=== PATIENT | female | born 2000 | race Hispanic/Latino ===

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

== ENCOUNTER 2019-01-11 23:59 | Inpatient (IN) | payer OTHER ==
[2019-01-12] MEDS ORDERED: MIDAZOLAM HCL 2 MG/2 ML INJ IV PRN (00:09)
[2019-01-12] MEDS ORDERED: BUTORPHANOL 1 MG/ML INJ IV PRN (00:09)
[2019-01-12] MEDS ORDERED: Ringers Lactate 1,000 ML IV PRN (00:09)
[2019-01-12] MEDS ORDERED: MEPERIDINE HCL 25 MG/0.5 ML IV PRN (00:09)
[2019-01-12] MEDS ORDERED: PROMETHAZINE 25 MG/ML VIAL IV PRN (00:09)
[2019-01-12] MEDS ORDERED: PENICILLIN 5 MU in NA CHLORIDE 0.9% 100 ML IV ONE (00:09)
[2019-01-12] MEDS ORDERED: CARBOPROST TROME 250 MCG/ML IM PRN ×2 (00:09→12:39)
[2019-01-12] MEDS ORDERED: METHYLERGONOVINE 0.2MG/ML AMP IM PRN ×2 (00:09→12:39)
[2019-01-12] MEDS ORDERED: Ringers Lactate 1,000 ML IV SCH (01:00)
[2019-01-12] MEDS ORDERED: OXYTOCIN/LR 20 UNIT/1,000 ML BAG IV SCH (01:00)
[2019-01-12 01:11] LABS: RPR Titer ND
[2019-01-12 01:17] LABS: Absolute Lymphocytes (CBC) 3.2 K/uL (0.7-4.9); Absolute Neutrophil 8.9 K/uL (1.8-8.0); Basophils % 0.4 % (0-1.3); Eosinophils % 1.1 % (0-4.4); Hematocrit 34.7 % (36.0-45.0); Lymphocytes % 24.1 % (15.3-44.8); MPV 9.9 fL (7.6-11.3); Monocytes % 7.3 % (3.3-12.3); RBC Red Blood Cell Count 3.85 M/uL (3.86-4.86)
[2019-01-12 01:18] LABS: Urine Appearance CLEAR; Urine Bilirubin NEGATIVE (NEG); Urine Blood NEGATIVE (NEG); Urine Color YELLOW; Urine Glucose NEGATIVE (NEG); Urine Protein NEGATIVE (NEG); Urine Urobilinogen 0.2 mg/dL (0.2-1.0); Urine pH 6.5 (5.0-7.0)
[2019-01-12 01:29] LABS: Urine Bacteria <20 /HPF (<20); Urine Culture Reflex Order NOT NEEDED; Urine RBC NONE SEEN /HPF (NONE SEEN)
[2019-01-12 04:24] VITALS: BMI 46.0
[2019-01-12] MEDS ORDERED: NA CHLORIDE 0.9% 100 ML IV ONE (04:35)
[2019-01-12] MEDS ORDERED: PENICILLIN G POT 5 MU/VIAL IV ONE (04:36)
[2019-01-12] MEDS ORDERED: PENICILLIN 2.5 MU in NA CHLORIDE 0.9% 100 ML IV SCH (05:00)
[2019-01-12] MEDS ORDERED: LIDOCAINE 2% 20 ML MDV SQ ONE (08:40)
[2019-01-12] MEDS ORDERED: INFLUENZA VACCINE (for 3y+) 0.5 ML DOSE IMVAC ONE (09:00)
--- NOTE | 2019-01-12 11:54 | PREOPHP ---
Date of Admission: 01/11/2019 A 18-year-old 3, para 2, followed antepartum, Rh positive, immune to Rubella, positive beta s trep screen, is on penicillin, has received 2 doses so far. Gestational diabetic, on insulin, has be en seen in association with [facility], Dr. Xiong, who has recommended delivery at this time. The patient is 3 cm, 50% effaced, but the baby is still fairly high in the pelvis, altho ugh it is well applied to the cervix. I think, it is more prudent at this point not to try rupture o f membranes. We will continue to stimulate with oxytocin and once either spontaneous rupture occurs, the patient will notify the nurse so she can be checked quickly to make sure there is no cord proble m. Full admission and labor talk given. We have a female fetus. The patient knows that after deliv camelia if the baby has any problems, dominatrix will arrange transfer if it becomes necessary. The kenneth watters has had both her other babies without the use of epidural and plans the same at this point. Demetrio th her other deliveries have also been slightly early, the first one at 37 weeks, the second one at 3 8 weeks and 4 days. This is 37 weeks and 3 days. HATTIE/LASHONDA Voice ID: [id number]
--- NOTE | 2019-01-12 15:34 | PN ---
The patient is aashish now very firmly every 2 minute. She is now 6 cm, 90% to 100% effaced, deirdre mona, -1, almost 0 station. FHTs normal, reactive. She has had 1 dose of Stadol IV. Phenergan IM. Does not want epidural. Anticipate fairly rapid progress. HATTIE/LASHONDA Voice ID: [id number] Report ID: [id number]
[2019-01-12] MEDS ORDERED: Oxycodone HCl/Acetaminophen 1 TAB TAB PO PRN ×2 (15:49→15:51)
[2019-01-12] MEDS ORDERED: ACETAMINOPHEN 500 MG TAB PO PRN (15:49)
[2019-01-12] MEDS ORDERED: DOCUSATE NA/SENNA CONC 1 TAB PO PRN (15:49)
[2019-01-12] MEDS ORDERED: BISACODYL 10 MG RECTAL SUPP RECT PRN (15:49)
[2019-01-12] MEDS ORDERED: glyBURIDE 2.5 MG TAB ONE (20:05)
[2019-01-12 20:49] LABS: RPR (Rapid Plasma Reagin) NON-REACT (NON-REACT)
[2019-01-12] MEDS: IBUPROFEN 200 MG TAB PO PRN (22:45)
--- NOTE | 2019-01-13 00:28 | OP ---
Surgeon: Danny Walters MD History Of Present Illness/hospital Course: A 18-year-old, 3, para 2, gestational insulin-de pendent diabetic. Seen in consultation with [facility], Dr. Xiong, who has sugges afia delivery at this point. The patient was 37 weeks 3 days with a favorable cervix, 2.5 cm, vertex presenting. At approximately 3.5 cm, rupture of membranes was performed, clear fluid. The patient w ent to a very active labor pattern thereafter, received 1 mg of Stadol IV. After she achieved 5 cm w ithin the next 30 minutes, was complete and on the perineum. Second stage of 10 minutes or less. Sp ontaneous vaginal delivery of an estimated 6-suqzc-mzro female. Nuchal cord x2 with Apgars 9 and 9. No episiotomy. No laceration. Sharma delivery of the placenta, which was inspected and noted to b e intact and normal. Less than 300 cc blood loss. Rh positive, immune to Rubella. Positive strep s creen. The patient received at least 3, possibly 4 doses of penicillin during her labor. Tolerated all procedures well. Final Diagnoses: Intrauterine gestation, 37 weeks 3 days, insulin-dependent diabetic, seen in consul tation with [facility], Dr. Xiong. Delivery at this point. Nuchal cord x2. Peni cillin prophylaxis. DANIELLEC/ISISL Voice ID: [id number] Report ID: [id number]
--- NOTE | 2019-01-13 08:20 | PN ---
Subjective: The patient still has not brought the baby down after rupture of membranes. She is on 2 2 milliunits of Pitocin. She is really still not aware of contractions, although she seems to be con tracting regularly. She knows a spontaneous rupture occurs, she is to tell the nurse immediately. W sharlene will check her again in about 2 hours and I will check her again at lunchtime. HATTIE/LASHONDA Voice ID: [id number] Report ID: [id number]
[2019-01-13] MEDS: IBUPROFEN 200 MG TAB PO PRN (10:35)
[2019-01-13 11:29] VITALS: BP 119/69; TEMP 97.8
--- NOTE | 2019-01-13 18:20 | DS ---
Date of Discharge: 01/13/2019 Hospital Course: This is a 18-year-old, 3, para 2, 37 weeks 3 days, seen in consultation wit [facility] Dr. Xiong, who recommended delivery at this point. 2.5 cm on admissi on. During the day, the patient progressed to 3.5, at which point, rupture of membranes was performe d. Clear fluid was obtained. She went to a very active labor pattern thereafter. She had 1 mg of S tadol IV and 25 mg of Phenergan IM. Second stage of 15 minutes or less. Spontaneous vaginal deliver y of a 6-pound 8-ounce female. Apgars 9 and 9. Nuchal cord x2. No episiotomy. No laceration. Mukesh ultze delivery of the placenta, which was inspected and noted to be intact and normal. Less than 300 cc blood loss. Penicillin prophylaxis during the labor as she had a strep positive status. Postpar sabrina, afebrile, ambulating and voiding. Lochia is normal. She will be dismissed later today to repor t back to my office next week. She is to take her blood sugars as she has been during the . If she has any very unusual sugars, she is to call my office and we will see her sooner than 6 week s. I think the patient will probably be diabetic even when she is not and we will get her a specialist for that. Final Diagnoses: Intrauterine gestation, 37 weeks 3 days, insulin dependent diabetes. Penicillin pr ophylaxis. Nuchal cord x2. Vaginal delivery. HATTIE/LASHONDA Voice ID: [id number] Report ID: [id number]
[2019-01-13] MEDS ORDERED: glyBURIDE 2.5 MG TAB PO ONE (19:32)
[2019-01-17 05:07] LABS: HBsAG Nonreactive (Nonreactive)
== END 2019-01-13 15:30 | disposition home or self-care (01) | DRG 807 ==
LOC: 2ND-WC 23:59
PROVIDERS: ADMIT Specialist; ATTEND Specialist
PROC: 10E0XZZ Delivery of Products of Conception, External Approach (ICD-10-PCS; principal; 2019-01-12)
PROC: 10907ZC Drainage of Amniotic Fluid, Therapeutic from Products of Conception, Via Natural or Artificial Opening (ICD-10-PCS; 2019-01-12)
DX: O60.14X0 Preterm labor third trimester with preterm delivery third trimester, not applicable or unspecified (principal); Z37.0 Single live birth; O99.824 Streptococcus B carrier state complicating childbirth; O24.424 Gestational diabetes mellitus in childbirth, insulin controlled; O69.81X0 Labor and delivery complicated by cord around neck, without compression, not applicable or unspecified; Z3A.37 37 weeks gestation of pregnancy
CPT/HCPCS: 36415; 76819; 81001; 82962; 85025; 86592; 86901; 87340; J0595; J2210; J2550; J2590

== ENCOUNTER 2019-01-21 07:03 | Emergency (ER) | payer OTHER ==
--- NOTE | 2019-01-21 08:08 | EDPHYS ---
Physician Documentation [facility] Name: Maci Arellano Age: 18 yrs Sex: Female : 2000 Arrival Date: 01/21/2019 Time: 07:14 Bed 20 Private MD: ED Physician Randell Bermeo HPI: 01/21 08:21 This 18 yrs old Female presents to ER via Ambulatory with complaints of Eye jr8 Swelling. 08:21 Onset: The symptoms/episode began/occurred acutely, this morning. Duration: the jr8 symptoms are continuous. Aggravated by nothing. Alleviated by nothing. Associated signs and symptoms: Pertinent positives: None. Patient wears glasses. Severity of symptoms: At their worst the symptoms were mild in the emergency department the symptoms are unchanged. The patient has not experienced similar symptoms in the past. The patient has not recently seen a physician. Stated that she woke up this morning with left upper eyelid swelling . Historical: - Allergies: 07:19 No Known Allergies; hb - Home Meds: 07:19 Glyburide Oral [Active]; hb - PMHx: 07:19 GESTATIONAL DM; hb - PSHx: 07:19 None; hb - Immunization history:: Adult Immunizations up to date. - Social history:: Smoking status: Patient/guardian denies using tobacco. - Ebola Screening: : No symptoms or risks identified at this time. ROS: 08:21 ENT: Negative for injury, pain, and discharge, Neck: Negative for injury, pain, and jr8 swelling, Cardiovascular: Negative for chest pain, palpitations, and edema, Respiratory: Negative for shortness of breath, cough, wheezing, and pleuritic chest pain, Abdomen/GI: Negative for abdominal pain, nausea, vomiting, diarrhea, and constipation, Back: Negative for injury and pain, MS/Extremity: Negative for injury and deformity, Skin: Negative for injury, rash, and discoloration, Neuro: Negative for headache, weakness, numbness, tingling, and seizure. 08:21 Eyes: Positive for swelling, of the left upper eyelid, Negative for blurry vision, discharge, foreign body sensation, injury or acute deformity, itching, matting, pain, photophobia, redness, tearing, vision loss, visual disturbance. Exam: 08:21 Visual Acuity: Visual acuity is within normal limits. jr8 08:21 Head/Face: Normocephalic, atraumatic. ENT: Nares patent. No nasal discharge, no septal abnormalities noted. Tympanic membranes are normal and external auditory canals are clear. Oropharynx with no redness, swelling, or masses, exudates, or evidence of obstruction, uvula midline. Mucous membranes moist. Neck: Trachea midline, no thyromegaly or masses palpated, and no cervical lymphadenopathy. Supple, full range of motion without nuchal rigidity, or vertebral point tenderness. No Meningismus. Cardiovascular: Regular rate and rhythm with a normal S1 and S2. No gallops, murmurs, or rubs. Normal PMI, no JVD. No pulse deficits. Respiratory: Lungs have equal breath sounds bilaterally, clear to auscultation and percussion. No rales, rhonchi or wheezes noted. No increased work of breathing, no retractions or nasal flaring. Abdomen/GI: Soft, non-tender, with normal bowel sounds. No distension or tympany. No guarding or rebound. No evidence of tenderness throughout. Back: No spinal tenderness. No costovertebral tenderness. Full range of motion. Skin: Warm, dry with normal turgor. Normal color with no rashes, no lesions, and no evidence of cellulitis. MS/ Extremity: Pulses equal, no cyanosis. Neurovascular intact. Full, normal range of motion. Neuro: Awake and alert, GCS 15, oriented to person, place, time, and situation. Cranial nerves II-XII grossly intact. Motor strength 5/5 in all extremities. Sensory grossly intact. Cerebellar exam normal. Normal gait. 08:21 Eyes: Periorbital structures: cellulitis, is not appreciated, erythema, is not appreciated, swelling, that is mild, on the left upper eyelid, abrasion, is not appreciated, contusion, is not appreciated, ecchymosis, is not appreciated, Pupils: equal, round, and reactive to light and accomodation, Extraocular movements: intact throughout, Conjunctiva: normal, Corneas: are normal, no foreign body, Sclera: no appreciated abnormality, Anterior chamber: normal, no hyphema, Lids and lashes: appear normal, bilaterally, Examination of the other eye reveals no obvious gross abnormality. Vital Signs: 07:16 BP 128 / 79; Resp 18; Temp 98.7; ph MDM: 07:34 Patient medically screened. jr8 08:06 Data reviewed: vital signs, nurses notes, and as a result, I will discharge patient. jr8 Data interpreted: Pulse oximetry: on room air is 100 %. Interpretation: normal. Counseling: I had a detailed discussion with the patient and/or guardian regarding: the historical points, exam findings, and any diagnostic results supporting the discharge/admit diagnosis, the need for outpatient follow up, an opthalmologist, to return to the emergency department if symptoms worsen or persist or if there are any questions or concerns that arise at home. 08:21 ED course: Discussed with patient that there is only mild amount of swelling noted jr8 without infective or traumatic signs. At this point there is noting clinically we can do to help. Would recommend close observation for now and to f/u with optometry. If something were to change or worsen to come back. Patient good with this plan . Administered Medications: No medications were administered Disposition: 01/21/19 08:08 Discharged to Home. Impression: Periorbital edema. - Condition is Stable. - Discharge Instructions: Orbital Cellulitis. - Medication Reconciliation Form, Thank You Letter, Antibiotic Education, Prescription Opioid Use form. - Follow up: Private Physician; When: 1 - 2 days; Reason: Recheck today's complaints, Continuance of care, Re-evaluation by your physician. - Problem is new. - Symptoms have improved. Addendum: 01/24/2019 19:31 Co-signature as Attending Physician, Randell Bermeo MD. g s Signatures: Trip Mcgrath PA PA jr8 Jennifer Sorenson RN RN Joceline Tracey RN RN Randell Bermeo MD MD Corrections: (The following items were deleted from the chart) 01/21 08:19 08:08 01/21/2019 08:08 Discharged to Home. Impression: Periorbital edema. Condition is ph Stable. Forms are Medication Reconciliation Form, Thank You Letter, Antibiotic Education, Prescription Opioid Use. Follow up: Private Physician; When: 1 - 2 days; Reason: Recheck today's complaints, Continuance of care, Re-evaluation by your physician. Problem is new. Symptoms have improved. jr8
--- NOTE | 2019-01-21 08:08 | ER ---
Nurse's Notes [facility] Name: Maci Arellano Age: 18 yrs Sex: Female : 2000 Arrival Date: 01/21/2019 Time: 07:14 Bed 20 Private MD: Diagnosis: Periorbital edema Presentation: 01/21 07:17 Presenting complaint: Patient states: Left periorbital swelling upon waking today. hb Denies injury/pain/itching. Transition of care: patient was not received from another setting of care. Onset of symptoms was January 21, 2019. Risk Assessment: Do you want to hurt yourself or someone else? Patient reports no desire to harm self or others. Initial Sepsis Screen: Does the patient meet any 2 criteria? No. Patient's initial sepsis screen is negative. Does the patient have a suspected source of infection? No. Patient's initial sepsis screen is negative. Care prior to arrival: None. 07:17 Method Of Arrival: Ambulatory hb 07:17 Acuity: IRVIN 4 hb Historical: - Allergies: 07:19 No Known Allergies; hb - Home Meds: 07:19 Glyburide Oral [Active]; hb - PMHx: 07:19 GESTATIONAL DM; hb - PSHx: 07:19 None; hb - Immunization history:: Adult Immunizations up to date. - Social history:: Smoking status: Patient/guardian denies using tobacco. - Ebola Screening: : No symptoms or risks identified at this time. Screenin:18 Abuse screen: Denies threats or abuse. Denies injuries from another. Nutritional ph screening: No deficits noted. Tuberculosis screening: No symptoms or risk factors identified. Fall Risk None identified. Assessment: 07:30 General: Appears in no apparent distress. comfortable, well groomed, Behavior is calm, ph cooperative, appropriate for age, Denies fever, feeling ill. Pain: Denies pain. Neuro: Level of Consciousness is awake, alert, obeys commands, Oriented to person, place, time, situation. Cardiovascular: Capillary refill < 3 seconds in bilateral fingers Patient's skin is warm and dry. Respiratory: Airway is patent Respiratory effort is even, unlabored, Respiratory pattern is regular, symmetrical. GI: No signs and/or symptoms were reported involving the gastrointestinal system. EENT: Lid(s) swelling noted to L upper lid. Derm: Skin is intact, is healthy with good turgor, Skin is pink, warm \T\ dry. Musculoskeletal: Circulation, motion, and sensation intact. Range of motion: intact in all extremities. Vital Signs: 07:16 BP 128 / 79; Resp 18; Temp 98.7; ph ED Course: 07:14 Patient arrived in ED. tw3 07:15 Jennifer Sorenson, RN is Primary Nurse. ph 07:18 Triage completed. hb 07:18 Arm band placed on Patient placed in an exam room. ph 07:34 Trip Mcgrath PA is PHCP. jr8 07:34 Randell Bermeo MD is Attending Physician. jr8 08:18 Patient has correct armband on for positive identification. Placed in gown. Bed in low ph position. Call light in reach. Side rails up X 1. Pulse ox on. NIBP on. Warm blanket given. 08:18 No provider procedures requiring assistance completed. Patient did not have IV access ph during this emergency room visit. Administered Medications: No medications were administered Outcome: 08:08 Discharge ordered by . jr8 08:19 Discharged to home ambulatory. ph 08:19 Condition: good 08:19 Discharge instructions given to patient, Instructed on discharge instructions, follow up and referral plans. Demonstrated understanding of instructions, follow-up care. 08:19 Patient left the ED. ph Signatures: Trip Mcgrath PA PA [facility] Jennifer Sorenson, SILVA ASCENCIO Joceline Tracey RN RN hb Wade, Tia tw3
[2019-01-21 08:29] VITALS: BP 128/79; TEMP 98.7
== END 2019-01-21 08:19 | disposition home or self-care (01) ==
LOC: ER 07:03
DX: H05.222 Edema of left orbit (principal)
CPT/HCPCS: 99282

== ENCOUNTER 2020-06-02 17:11 | Emergency (ER) | payer OTHER, SELFPAY ==
[2020-06-02] MEDS ORDERED: MAGNE/ALUM HYDROXD 30 ML UCUP ONE (20:19)
--- NOTE | 2020-06-02 20:23 | EDPHYS ---
Physician Documentation [facility] Name: Maci Arellano Age: 19 yrs Sex: Female : 2000 Arrival Date: 06/02/2020 Time: 17:12 Bed 28 Private MD: ED Physician Blaise Hart HPI: 06/02 20:00 This 19 yrs old Female presents to ER via Ambulatory with complaints of snw Abdominal Pain. 20:00 The patient presents with abdominal pain in the epigastric area. Onset: The snw symptoms/episode began/occurred suddenly, last night. The symptoms radiate to back. Associated signs and symptoms: Pertinent positives: sore throat. The symptoms are described as burning, sharp. Severity of pain: At its worst the pain was moderate. The patient has not experienced similar symptoms in the past. The patient has not recently seen a physician. 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 - Social history:: Smoking status: Patient denies any tobacco usage or history of. ROS: 19:58 Eyes: Negative for injury, pain, redness, and discharge, ENT: Negative for injury, snw pain, and discharge, Neck: Negative for injury, pain, and swelling, Cardiovascular: Negative for chest pain, palpitations, and edema, Respiratory: Negative for shortness of breath, cough, wheezing, and pleuritic chest pain. 19:58 ENT: Negative for injury and discharge, sore throat to left when swallowing : Negative for injury, bleeding, discharge, and swelling, MS/Extremity: Negative for injury and deformity, Skin: Negative for injury, rash, and discoloration, Neuro: Negative for headache, weakness, numbness, tingling, and seizure. 19:58 Constitutional: Positive for malaise. 19:58 Abdomen/GI: Positive for abdominal pain, of the epigastric area. 19:58 Back: Positive for pain with movement. Exam: 19:58 Constitutional: This is a well developed, well nourished patient who is awake, alert, snw and in no acute distress. Head/Face: Normocephalic, atraumatic. Eyes: Pupils equal round and reactive to light, extra-ocular motions intact. Lids and lashes normal. Conjunctiva and sclera are non-icteric and not injected. Cornea within normal limits. Periorbital areas with no swelling, redness, or edema. ENT: Nares patent. No nasal discharge, no septal abnormalities noted. Tympanic membranes are normal and external auditory canals are clear. Oropharynx with no redness, swelling, or masses, exudates, or evidence of obstruction, uvula midline. Mucous membranes moist. Neck: Trachea midline, no thyromegaly or masses palpated, and no cervical lymphadenopathy. Supple, full range of motion without nuchal rigidity, or vertebral point tenderness. No Meningismus. Chest/axilla: Normal chest wall appearance and motion. Nontender with no deformity. No lesions are appreciated. Cardiovascular: Regular rate and rhythm with a normal S1 and S2. No gallops, murmurs, or rubs. Normal PMI, no JVD. No pulse deficits. Respiratory: Lungs have equal breath sounds bilaterally, clear to auscultation and percussion. No rales, rhonchi or wheezes noted. No increased work of breathing, no retractions or nasal flaring. Abdomen/GI: Soft, non-tender, with normal bowel sounds. No distension or tympany. No guarding or rebound. No evidence of tenderness throughout. Back: No spinal tenderness. No costovertebral tenderness. Full range of motion. Skin: Warm, dry with normal turgor. Normal color with no rashes, no lesions, and no evidence of cellulitis. MS/ Extremity: Pulses equal, no cyanosis. Neurovascular intact. Full, normal range of motion. Neuro: Awake and alert, GCS 15, oriented to person, place, time, and situation. Cranial nerves II-XII grossly intact. Motor strength 5/5 in all extremities. Sensory grossly intact. Cerebellar exam normal. Normal gait. Psych: Awake, alert, with orientation to person, place and time. Behavior, mood, and affect are within normal limits. Vital Signs: 17:21 BP 113 / 81; Pulse 91; Resp 15; Temp 97.0(TE); Pulse Ox 100% on R/A; Weight 96.16 kg; ss Height 4 ft. 11 in. (149.86 cm); Pain 6/10; 20:59 BP 110 / 62; Pulse 78; Resp 16; Temp 97.2(O); Pulse Ox 99% on R/A; Pain 3/10; ls4 17:21 Body Mass Index 42.82 (96.16 kg, 149.86 cm) ss MDM: 19:24 Patient medically screened. snw 20:28 Data reviewed: vital signs, nurses notes. Data interpreted: Pulse oximetry: on room air snw is 100 %. Interpretation: normal. Counseling: I had a detailed discussion with the patient and/or guardian regarding: the historical points, exam findings, and any diagnostic results supporting the discharge/admit diagnosis, lab results, the need for outpatient follow up, to return to the emergency department if symptoms worsen or persist or if there are any questions or concerns that arise at home. Special discussion: Based on the history and exam findings, there is no indication for further emergent testing or inpatient evaluation. I discussed with the patient/guardian the need to see the primary care provider for further evaluation of the symptoms. 06/02 18:01 Order name: Urine Microscopic Only snw 06/02 18:02 Order name: Urine Microscopic Only EDMS 06/02 20:06 Order name: Urine Dipstick-Ancillary; Complete Time: 20:52 EDMS 06/02 20:19 Order name: Glucose, Ancillary Testing; Complete Time: 20:20 EDMS 06/02 18:01 Order name: Urine Test (obtain specimen); Complete Time: 19:55 snw 06/02 18:01 Order name: Urine Dipstick-Ancillary (obtain specimen); Complete Time: 19:55 snw 06/02 19:55 Order name: FSBS; Complete Time: 20:20 snw Administered Medications: 20:04 Drug: GI Cocktail without - (Maalox Suspension 30 ml, Lidocaine Liquid 2 % 15 ls4 ml) Route: PO; 20:28 Drug: metFORMIN 500 mg Route: PO; ls4 20:58 Follow up: Response: No adverse reaction ls4 Disposition: 06/03 07:23 Co-signature as Attending Physician, Blaise Hart MD I agree with the assessment and kdr plan of care. Disposition: 06/02/20 20:22 Discharged to Home. Impression: Diabetes mellitus due to underlying condition with hyperglycemia, Gastro-esophageal reflux disease. - Condition is Stable. - Discharge Instructions: Diabetes and Sick Day Management, Gastroesophageal Reflux Disease, Adult, Complementary and Alternative Medical Therapies for Diabetes, Form - Daily Diabetes Record, Blood Glucose Monitoring, Adult, Rehydration, Adult, Diet for Metabolic Syndrome. - Prescriptions for Metformin 500 mg Oral Tablet - take 1 tablet by ORAL route once daily for 7 days Then take 1 tablet with morning meals AND evening meals; 21 tablet. - Medication Reconciliation Form, Thank You Letter, Antibiotic Education, Prescription Opioid Use form. - Follow up: Emergency Department; When: As needed; Reason: Worsening of condition. Follow up: Private Physician; When: 2 - 3 days; Reason: Recheck today's complaints, Continuance of care, Re-evaluation by your physician. - Notes: Metformin commonly causes diarrhea in the beginning of treatment. Signatures: Dispatcher [employer] EDDE Blaise Hart MD MD kdr Waters, Shelly, B2B SALES CONSULTANT-C [employer] SALES CONSULTANT-Csnw Crista Sanchez RN RN ss Katarina Valiente RN RN ls4 Corrections: (The following items were deleted from the chart) 06/02 20:59 20:07 URINE DIPSTICK--ANCILLARY+U.LAB.BRZ ordered. [facility] 21:01 20:22 06/02/2020 20:22 Discharged to Home. Impression: Diabetes mellitus due to ls4 underlying condition with hyperglycemia; Gastro-esophageal reflux disease. Condition is Stable. Forms are Medication Reconciliation Form, Thank You Letter, Antibiotic Education, Prescription Opioid Use. Follow up: Emergency Department; When: As needed; Reason: Worsening of condition. Follow up: Private Physician; When: 2 - 3 days; Reason: Recheck today's complaints, Continuance of care, Re-evaluation by your physician. snw
--- NOTE | 2020-06-02 20:23 | ER ---
Nurse's Notes [facility] Name: Maci Arellano Age: 19 yrs Sex: Female : 2000 Arrival Date: 06/02/2020 Time: 17:12 Bed 28 Private MD: Diagnosis: Diabetes mellitus due to underlying condition with hyperglycemia;Gastro-esophageal reflux disease Presentation: 06/02 17:20 Chief complaint: Patient states: epigastric pain that began last night. Pt states, "Any ss time I eat or drink anything it hurts going down.". Coronavirus screen: Patient denies a cough. Patient denies shortness of breath or difficulty breathing. Patient denies measured and/or subjective temperature greater than 100.4F prior to today's visit. Patient denies travel on a cruise ship or to a country the [facility] currently lists as an affected area. Patient denies contact with known and/or suspected case of COVID-19. Ebola Screen: Patient denies exposure to infectious person. Patient denies travel to an Ebola-affected area in the 21 days before illness onset. Initial Sepsis Screen: Does the patient meet any 2 criteria? No. Patient's initial sepsis screen is negative. Does the patient have a suspected source of infection? No. Patient's initial sepsis screen is negative. Risk Assessment: Do you want to hurt yourself or someone else? Patient reports no desire to harm self or others. Onset of symptoms was June 01, 2020. 17:20 Method Of Arrival: Ambulatory ss 17:20 Acuity: IRVIN 3 ss Triage Assessment: 19:01 General: Appears in no apparent distress. comfortable, Behavior is calm, cooperative. 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 - Social history:: Smoking status: Patient denies any tobacco usage or history of. Screenin:22 Abuse screen: Denies threats or abuse. Denies injuries from another. Nutritional ls4 screening: No deficits noted. Tuberculosis screening: No symptoms or risk factors identified. Fall Risk None identified. Assessment: 18:50 General: Appears in no apparent distress. comfortable. Pain: Complains of pain in ls4 epigastric area Pain currently is 6 out of 10 on a pain scale. Cardiovascular: Denies chest pain, Capillary refill < 3 seconds Patient's skin is warm and dry. Respiratory: Airway is patent Respiratory effort is even, unlabored, Respiratory pattern is regular, Breath sounds are clear bilaterally. GI: Bowel sounds present X 4 quads. Abd is soft and non tender X 4 quads. Reports epigastric pain, intolerance of fluids, intolerance of food. Derm: Skin is pink, warm \\T\\ dry. 20:22 Reassessment: Patient appears in no apparent distress at this time. Patient and/or ls4 family updated on plan of care and expected duration. Pain level reassessed. Patient is alert, oriented x 3, equal unlabored respirations, skin warm/dry/pink. Vital Signs: 17:21 BP 113 / 81; Pulse 91; Resp 15; Temp 97.0(TE); Pulse Ox 100% on R/A; Weight 96.16 kg; ss Height 4 ft. 11 in. (149.86 cm); Pain 6/10; 20:59 BP 110 / 62; Pulse 78; Resp 16; Temp 97.2(O); Pulse Ox 99% on R/A; Pain 3/10; ls4 17:21 Body Mass Index 42.82 (96.16 kg, 149.86 cm) ED Course: 17:12 Patient arrived in ED. ag5 17:21 Triage completed. ss 17:21 Arm band placed on right wrist. ss 18:01 [facility]C [facility]. snw 18:01 Blaise Hart MD is Attending Physician. snw 19:57 Katarina Valiente, SILVA is Primary Nurse. ls4 20:22 Patient has correct armband on for positive identification. Call light in reach. Side ls4 rails up X 1. 20:54 Urine Microscopic Only Sent. ls4 20:58 Urine Microscopic Only Sent. ls4 21:01 No provider procedures requiring assistance completed. Patient did not have IV access ls4 during this emergency room visit. Administered Medications: 20:04 Drug: GI Cocktail without - (Maalox Suspension 30 ml, Lidocaine Liquid 2 % 15 ls4 ml) Route: PO; 20:28 Drug: metFORMIN 500 mg Route: PO; ls4 20:58 Follow up: Response: No adverse reaction ls4 Outcome: 20:22 Discharge ordered by MD. cantu 21:00 Discharged to home ambulatory. ls4 21:00 Condition: good 21:00 Discharge instructions given to patient, Instructed on discharge instructions, follow up and referral plans. medication usage, safety practices, Diabetes education given Demonstrated understanding of instructions, follow-up care, medications, Prescriptions given X 1. 21:01 Patient left the ED. ls4 Signatures: Elvia Lopez, OUTPATIENT CASE MANAGER-C OUTPATIENT CASE MANAGER-[place] Crista Sanchez, RN RN ss Katarina Valiente RN RN ls4 Mikey Schneider ag5 Corrections: (The following items were deleted from the chart) 20:59 20:20 URINE DIPSTICK--ANCILLARY+U.LAB.BRZ drawn and sent. ls4 EDMS
[2020-06-02] MEDS ORDERED: METFORMIN HCL 500 MG TAB ONE (20:39)
[2020-06-02 20:49] LABS: Urine Blood NEGATIVE (NEG); Urine Glucose 2+ (NEG); Urine Protein TRACE (NEG); Urine Specific Gravity >1.030 (1.005-1.030); Urine pH 5.5 (5.0-7.0)
[2020-06-02 21:34] LABS: Urine Bacteria 20-50 /HPF (<20); Urine Culture Reflex Order REFLEXED; Urine RBC <5 /HPF (NONE SEEN)
== END 2020-06-02 21:01 | disposition home or self-care (01) ==
LOC: ER 17:11
DX: K21.9 Gastro-esophageal reflux disease without esophagitis (principal); E11.65 Type 2 diabetes mellitus with hyperglycemia
CPT/HCPCS: 81003; 81015; 82947; 87086; 87088; 99283

== ENCOUNTER 2022-11-11 06:34 | Emergency (ER) | payer OTHER ==
[2022-11-11 07:39] LABS: Urine Blood Trace-lysed (Negative); Urine Glucose Negative (Negative); Urine Protein Negative (Negative); Urine Specific Gravity 1.015 (1.005-1.030)
[2022-11-11 08:20] LABS: Absolute Lymphocytes (CBC) 2.5 K/uL (0.7-4.9); Hematocrit 36.7 % (36.0-45.0); Lymphocytes % 21.6 % (15.3-44.8); MCV 89.3 fL (80-100); MPV 8.5 fL (7.6-11.3); RBC Red Blood Cell Count 4.11 M/uL (3.86-4.86)
[2022-11-11 08:32] LABS: Albumin 3.3 g/dL (3.4-5.0); Bilirubin Total 0.2 mg/dL (0.2-1.0); Potassium 3.8 mmol/L (3.5-5.1); Protein, Total 7.8 g/dL (6.4-8.2)
[2022-11-11] MEDS ORDERED: LIDOCAINE VISCOUS 2% SOLN 15 ML UDC ONE (08:33)
[2022-11-11] MEDS ORDERED: MAGNES/ALUMIN/SIMET 30ML UCUP ONE (08:33)
[2022-11-11] MEDS ORDERED: FAMOTIDINE 20 MG TAB ONE (08:33)
[2022-11-11] MEDS ORDERED: ONDANSETRON 4 MG/2 ML VIAL ONE (08:33)
[2022-11-11] MEDS ORDERED: NA CHLORIDE 0.9% 1,000 ML ONE (08:33)
--- NOTE | 2022-11-11 10:11 | ER ---
Nurse's Notes [facility] Name: Maci Arell[facility] Age: 22 yrs Sex: Female : 2000 Arrival Date: 11/11/2022 Time: 06:37 Bed 16 Private MD: Diagnosis: Epigastric pain;Nausea Presentation: 11/11 07:23 Chief complaint: Patient states: epigastric tenderness that radiates to back that began ss 2 days ago with nausea. HX of 2 weeks ago. Coronavirus screen: Client denies travel out of the [place] in the last 14 days. Ebola Screen: Patient denies exposure to infectious person. Patient denies travel to an Ebola-affected area in the 21 days before illness onset. Initial Sepsis Screen: Does the patient meet any 2 criteria? No. Patient's initial sepsis screen is negative. Does the patient have a suspected source of infection? No. Patient's initial sepsis screen is negative. Risk Assessment: Do you want to hurt yourself or someone else? Patient reports no desire to harm self or others. Onset of symptoms was November 09, 2022. 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 - Social history:: Smoking status: Patient denies any tobacco usage or history of. Screenin:50 [facility] ED Fall Risk Assessment (Adult) History of falling in the last 3 months, db including since admission No falls in past 3 months (0 pts) Confusion or Disorientation No (0 pts) Intoxicated or Sedated No (0 pts) Impaired Gait No (0 pts) Mobility Assist Device Used No (0 pt) Altered Elimination No (0 pt) Score/Fall Risk Level 0 - 2 = Low Risk Oriented to surroundings, Maintained a safe environment. Abuse screen: Denies threats or abuse. Denies injuries from another. Nutritional screening: No deficits noted. Tuberculosis screening: No symptoms or risk factors identified. Assessment: 08:45 Reassessment: Patient appears in no apparent distress at this time. Patient and/or db family updated on plan of care and expected duration. Pain level reassessed. Patient is alert, oriented x 3, equal unlabored respirations, skin warm/dry/pink. patient states has middle lower abdominal pain. Reassessment: recent . General: Appears in no apparent distress. comfortable, Behavior is calm, cooperative, appropriate for age. Pain: Complains of pain in abdomen. Neuro: No deficits noted. Level of Consciousness is awake, alert, obeys commands, Oriented to person, place, time, situation, Appropriate for age. GI: Bowel sounds present X 4 quads. Abd is soft Abdomen is tender to palpation. 09:30 Reassessment: Patient appears in no apparent distress at this time. Patient and/or db family updated on plan of care and expected duration. Pain level reassessed. Patient is alert, oriented x 3, equal unlabored respirations, skin warm/dry/pink. Patient states feeling better. Patient states symptoms have improved. 10:28 Reassessment: Patient appears in no apparent distress at this time. Patient and/or db family updated on plan of care and expected duration. Pain level reassessed. Patient is alert, oriented x 3, equal unlabored respirations, skin warm/dry/pink. Vital Signs: 07:23 BP 112 / 66; Pulse 82; Resp 16; Temp 98.1(O); Pulse Ox 98% on R/A; Weight 82.55 kg; ss Height 4 ft. 9 in. (144.78 cm); Pain 7/10; 08:50 BP 112 / 75; Pulse 72; Resp 18; Pulse Ox 96% ; Pain 7/10; db 09:30 BP 114 / 75; Pulse 67; Resp 18; Pulse Ox 100% on R/A; db 07:23 Body Mass Index 39.38 (82.55 kg, 144.78 cm) ED Course: 06:37 Patient arrived in ED. ja2 07:24 Triage completed. ss 07:24 Arm band placed on right wrist. 07:53 Taylor Ren MD is Attending Physician. sd2 08:01 Ladan Hernandez, RN is Primary Nurse. db 08:10 CBC with Diff Sent. bc6 08:11 CMP Sent. bc6 08:11 Lipase Sent. bc6 08:11 Initial lab(s) drawn, by me, sent to lab. Inserted saline lock: 20 gauge in right bc6 antecubital area, using aseptic technique. 08:50 Patient has correct armband on for positive identification. Bed in low position. Call db light in reach. Side rails up X 1. Pulse ox on. NIBP on. 10:28 No provider procedures requiring assistance completed. IV discontinued, intact, db bleeding controlled, No redness/swelling at site. Administered Medications: 08:50 Drug: Pepcid (famotidine) 20 mg Route: PO; db 10:17 Follow up: Response: No adverse reaction db 08:50 Drug: Zofran (Ondansetron) 4 mg Route: IVP; Site: left antecubital; db 10:17 Follow up: Response: No adverse reaction db 08:50 Drug: GI Cocktail without - (Maalox Suspension 30 ml, Lidocaine Liquid 2 % 15 db ml) Route: PO; 10:17 Follow up: Response: No adverse reaction db 08:50 Drug: NS 0.9% 1000 ml Route: IV; Rate: 1 bolus; Site: right antecubital; db 10:16 Follow up: IV Status: Completed infusion; IV Intake: 1000ml db Medication: 08:50 VIS not applicable for this client. db Intake: 10:16 IV: 1000ml; Total: 1000ml. db Outcome: 10:11 Discharge ordered by . sd2 10:28 Discharged to home ambulatory. db 10:28 Condition: stable 10:28 Discharge instructions given to patient, Instructed on discharge instructions, follow up and referral plans. Demonstrated understanding of instructions. 10:30 Patient left the ED. db Signatures: Crista Sanchez, RN RN Mariela Capellan Stephanie, MD MD sd2 Ladan Hernandez RN RN db [place], Breana 6
--- NOTE | 2022-11-11 10:11 | EDPHYS ---
Physician Documentation [facility] Name: Maci Arell[facility] Age: 22 yrs Sex: Female : 2000 Arrival Date: 11/11/2022 Time: 06:37 Bed 16 Private MD: NETTA Physician Taylor Ren HPI: 11/11 08:14 This 22 yrs old Female presents to ER via Ambulatory with complaints of sd2 Abdominal Pain, Back Pain. 08:14 22-year-old female presents with chief complaint of upper abdominal pain radiating to sd2 her back that started last night. She reports she had the same pain a couple of nights ago but and improved after sleeping. She did recently have a 2 weeks ago without complication. She denies any associated fever but does endorse nausea without vomiting. She denies any diarrhea or urinary symptoms. She states that she has had some recent heartburn issues with her but denies any other known GI problems. She does still have her gallbladder and appendix. She did not take anything OTC at home for the pain. . 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 - Social history:: Smoking status: Patient denies any tobacco usage or history of. ROS: 08:14 Constitutional: Negative for fever, chills, and weight loss, Eyes: Negative for injury, sd2 pain, redness, and discharge, Cardiovascular: Negative for chest pain, palpitations, and edema, Respiratory: Negative for shortness of breath, cough, wheezing. 08:14 : Negative for dysuria, urinary frequency, hesitancy, urgency and hematuria. MS/Extremity: Negative for injury and deformity, Skin: Negative for injury, rash, and discoloration, Neuro: Negative for headache, numbness and tingling. 08:14 Abdomen/GI: Positive for abdominal pain, nausea, Negative for vomiting, diarrhea. 08:14 Back: Positive for radiated pain, Negative for injury or acute deformity, pain with movement, acute changes. Exam: 08:14 Constitutional: This is a well developed, well nourished patient who is awake, alert, sd2 and in no acute distress. Head/Face: Normocephalic, atraumatic. Eyes: EOMI, normal conjunctiva bilaterally Chest/axilla: Normal chest wall appearance and motion. Nontender with no deformity. Cardiovascular: Regular rate and rhythm with a normal S1 and S2. No gallops, murmurs, or rubs. 2+ distal pulses. Respiratory: Lungs have equal breath sounds bilaterally, clear to auscultation and percussion. No rales, rhonchi or wheezes noted. No increased work of breathing, no retractions or nasal flaring. Abdomen/GI: Soft, non-tender, with normal bowel sounds. No guarding or rebound. No evidence of tenderness throughout. Back: No spinal tenderness. No costovertebral tenderness. Full range of motion. Skin: Warm, dry with normal turgor. Normal color with no rashes, no lesions, and no evidence of cellulitis. MS/ Extremity: Pulses equal, no cyanosis. Neurovascular intact. Full, normal range of motion. Ambulatory without difficulty. Psych: Awake, alert, with orientation to person, place and time. Behavior, mood, and affect are within normal limits. Vital Signs: 07:23 BP 112 / 66; Pulse 82; Resp 16; Temp 98.1(O); Pulse Ox 98% on R/A; Weight 82.55 kg; ss Height 4 ft. 9 in. (144.78 cm); Pain 7/10; 08:50 BP 112 / 75; Pulse 72; Resp 18; Pulse Ox 96% ; Pain 7/10; db 09:30 BP 114 / 75; Pulse 67; Resp 18; Pulse Ox 100% on R/A; db 07:23 Body Mass Index 39.38 (82.55 kg, 144.78 cm) ss MDM: 07:53 Patient medically screened. sd2 08:14 Differential diagnosis: Gastritis, cholecystitis, pancreatitis, SBO, diverticulitis, sd2 kidney stone, appendicitis, UTI, dehydration, electrolyte abnormality among others. Data reviewed: vital signs, nurses notes. 10:09 Data reviewed: lab test result(s). Counseling: I had a detailed discussion with the sd2 patient and/or guardian regarding: the historical points, exam findings, and any diagnostic results supporting the discharge/admit diagnosis, lab results, the need for outpatient follow up, to return to the emergency department if symptoms worsen or persist or if there are any questions or concerns that arise at home. Medical screen evaluation completed. [facility] ED course: Labs reviewed with no acute abnormalities noted. Pt much improved after treatment with Pepcid, Zofran and GI cocktail. Suspect GERD/gastritis. Benign abdominal exam. C/s incision c/d/i. No lower abdominal pain. Pain resolved and patient advised of continued supportive care for symptoms and need for outpatient follow up with PCP. Also advised of dietary changes. Verbalizes understanding of discharge plan and strict return precautions. . 11/11 07:33 Order name: CBC with Diff; Complete Time: 08:57 ss 11/11 07:33 Order name: CMP; Complete Time: 08:57 ss 11/11 07:33 Order name: Lipase; Complete Time: 08:57 ss 11/11 07:39 Order name: Urine Dipstick-Ancillary; Complete Time: 07:56 EDMS 11/11 07:40 Order name: Urine --Ancillary (enter results) ss 11/11 07:33 Order name: IV Saline Lock; Complete Time: 08:10 ss 11/11 07:33 Order name: Labs collected and sent; Complete Time: 08:10 ss 11/11 07:33 Order name: Urine Dipstick-Ancillary (obtain specimen); Complete Time: 07:33 ss 11/11 07:33 Order name: Urine Test (obtain specimen); Complete Time: 07:33 ss Administered Medications: 08:50 Drug: Pepcid (famotidine) 20 mg Route: PO; db 10:17 Follow up: Response: No adverse reaction db 08:50 Drug: Zofran (Ondansetron) 4 mg Route: IVP; Site: left antecubital; db 10:17 Follow up: Response: No adverse reaction db 08:50 Drug: GI Cocktail without - (Maalox Suspension 30 ml, Lidocaine Liquid 2 % 15 db ml) Route: PO; 10:17 Follow up: Response: No adverse reaction db 08:50 Drug: NS 0.9% 1000 ml Route: IV; Rate: 1 bolus; Site: right antecubital; db 10:16 Follow up: IV Status: Completed infusion; IV Intake: 1000ml db Disposition Summary: 11/11/22 10:11 Discharge Ordered Location: Home sd2 Problem: new sd2 Symptoms: are resolved sd2 Condition: Stable sd2 Diagnosis - Epigastric pain sd2 - Nausea sd2 Followup: sd2 - With: Private Physician - When: 2 - 3 days - Reason: Recheck today's complaints, Continuance of care, Re-evaluation by your physician Discharge Instructions: - Discharge Summary Sheet sd2 - Abdominal Pain, Adult sd2 - Food Choices for Gastroesophageal Reflux Disease, Adult sd2 - Gastroesophageal Reflux Disease, Adult sd2 Forms: - Medication Reconciliation Form sd2 - Thank You Letter sd2 - Antibiotic Education sd2 - Prescription Opioid Use sd2 Signatures: Dispatcher [employer] EDCrista Malik, SILVA RN ss Taylor Ren MD MD sd2 Ladan Hernandez RN RN db
[2022-11-11 10:34] VITALS: TEMP 98.1
[2022-11-11 10:36] VITALS: BP 114/75; O2SAT 100
[2022-11-11 12:01] LABS: Urine Specific Gravity/Preg 1.015 (1.005-1.030)
== END 2022-11-11 10:30 | disposition home or self-care (01) ==
LOC: ER 06:34
DX: R10.13 Epigastric pain (principal); R11.0 Nausea; E11.9 Type 2 diabetes mellitus without complications
CPT/HCPCS: 96361; 85025; 36415; 81025; 81003; 83690; 80053; 96374; 99284; J7030; J2405

== ENCOUNTER 2022-11-12 02:48 | Observation (INO) | payer OTHER ==
--- OUTSIDE RECORDS SUMMARY | 2022-11-12 02:53 | XMS REPORT | Continuity of Care Document ---
:2000 Author Organization [facility] t Address [address] [place] [address] Care Team Providers Name Role Phone Ekwo, Beth Attending Clinician Unavailable Vincent Arevalo Attending Clinician Unavailable Marissa Shetty NP Attending Clinician Ekwo, Beth Admitting Clinician Unavailable Vincent Arevalo Admitting Clinician Unavailable Payers Payer Name Policy Type Policy Number Effective Date Expiration Date [facility] [id number] 2018 [facility] MEDICAID 00:00:00 Problems Condition Condition Condition Status Onset Resolution Last Treating Co mments Source Name Details Category Date Date Treatment Clinician Date No known No known Disease Unive rs active active ity of problems problems [facility] Allergies, Adverse Reactions, Alerts Allergy Allergy Status Severity Reaction(s) Onset Inactive Treating Comm ents Source Name Type Date Date Clinician No Known DA Active U 2021-11 [facility] All[facility]ie 2-15 [facility] 00 [facility] NO KNOWN Drug Active Univers ALLERGIE Class ity of S [facility] Social History Social Habit Start Date Stop Date Quantity Comments Source ASSERTION 2018-06-17 [facility] 00:00:00 [facility] Exposure to Not sure [facility] SARS-CoV-2 (event) Medica l Branch Tobacco use and 2021-06-27 2021-06-27 Never used [facility] exposure 00:00:00 00:00:00 [facility] Sex Assigned At [birth year] [facility] [place] 00:00:00 00:00:00 Medical Branch Smoking Status Start Date Stop Date Source Never smoker [facility] xa Medical Branch Medications Ordered Filled Start Stop Current Ordering Indication Dosage Frequency Signature Comments Components Source Medication Medication Date Date Medication? Clinician (SIG) Name Name benzonatate 2020- No 200mg 200 mg, U nivers (TESSALON 06-28 Oral, ity of PERLES) 02:15: 01:19 ONCE, 1 [place] capsule 200 00 :00 dose, Fri Med ical mg 06/27/21 at Branch 2115, Routine azithromyci 2020- No 500mg 500 mg, U nivers n 06-28 Oral, ity of (ZITHROMAX) 02:15: 01:19 ONCE, 1 [place] tablet 500 00 :00 dose, Fri Medi jordyn mg 06/27/21 at Branch 2115, GREG
Re ason for Anti-Infec tive: Documented Infection< br>Documen afia Infection Site: Respirator y
Durat ion of Therapy: 7 days ibuprofen 2020- No 800mg 800 mg, Uni vers (IBU) 06-28 Oral, ity of tablet 800 02:15: 01:19 ONCE, 1 Ajit as mg 00 :00 dose, Fri Medical 06/27/21 at Branch 2115, GREG acetaminoph 2020- No 650mg 650 mg, U nivers en 06-27 Oral, ity of (TYLENOL) 23:30: 01:19 ONCE, 1 [place] tablet 650 00 :00 dose, Fri Medi jordyn mg 06/27/21 at Branch 1830, GREG azithromyci 0 Yes [id number] 250mg Take 1 Univers n 250 mg 8-18 tablet by ity of tablet 00:00: mouth [place] 00 daily. Medical Take 500 Branch mg day 1, then 250 mg days 2 to 5. albuterol Yes [id number] 2{puff} Inhale 2 Univers 90 8-18 Puffs ity of mcg/actuati 00:00: every 4 Ajit as on inhaler 00 (four) Medical hours as Branch needed for Wheezing or Shortness of Breath. benzonatate Yes [id number] 100mg Take 1 Univers 100 mg 8-18 capsule by ity of capsule 00:00: mouth 3 [place] 00 (three) Medical times [place] daily as needed for Cough. codeine-gua Yes [id number] 10mL Take 10 mL Univers ifenesin 8-18 by mouth ity of (CHERATUSSI 00:00: at bedtime [place] N ) 00 as needed Medical 10-100 mg/5 for Cough. Br anch mL solution Indication s: chronic pain Vital Signs Vital Name Observation Time Observation Value Comments Source Systolic blood 2021-06-28 02:21:00 129 [facility]Hg[facility] Diastolic blood 2021-06-28 02:21:00 82 mm[Hg] [facility] Heart rate 2021-06-28 02:21:00 118 /min [facility] Body temperature 2021-06-28 02:21:00 38.5 [facility] Respiratory rate 2021-06-28 02:21:00 21 /min [facility] Oxygen saturation in 2021-06-28 02:21:00 98 /min [facility] Arterial blood by [facility] Pulse oximetry Branch Body weight 2021-06-27 22:11:00 97.523 kg [facility] Procedures Procedure Date / Time Performed Performing Clinician Aniyah su [id number] 2022-10-24 00:00:[address] [facility] [place] [address]EG 2022-10-24 00:00:[address] [facility] [place] XR CHEST 2 VW 2021-06-27 22:32:13 Eusebio Sebastian [place] o f [facility] COVID-19 (ID NOW 2021-06-27 22:20:00 Eusebio Sebastian [facility] RAPID TESTING) [facility] NOTICE OF PRIVACY 2021-06-27 21:59:32 Doctor Unassigned, No Univ [facility] PRACTICES Name [facility] Encounters Start End Encounter Admission Attending Care Care Encounter Source Date/Time Date/Time Type Type Clinicians Facility Department ID 2021-09-10 Emergency [facility] [id number] Univers 16:33:[address] [facility] 2022-10-24 2022-10-27 Inpatient EM Ekwo, [facility] OBPP [id number] [facility] 13:01:00 15:06:00 Beth 97 [facility] 2022-09-19 2022-09-19 Inpatient EL Irina, [facility] RADI [id number] [facility] 11:00:00 11:00:00 Vincent 98 [facility] [place] 2022-04-18 2022-04-18 Outpatient EL Irina, [facility] RADI [id number] [facility] 11:51:00 11:51:00 Vincent 83 [facility] [place] 2022-04-18 2022-04-18 Outpatient [place], [facility] [id number] [facility] 11:51:00 11:51:00 Vincent [id number] [facility] 2021-06-27 2021-06-27 Emergency [facility], [facility] [id number] [facility] 17:17:00 22:01:00 [id number] [id number] [facility] [phone] [place] [id number] [place] Results Test Description Test Time Test Comments Results Result Comments Source GLUBED 2022-10-27 10:17:00 Test Item Value Reference Range Interpretation Comme nts GLUBED (test code = GLUBED) 131 mg/dL 65-110 H [id number] 22:04:00 Test Item Value Reference Range Interpretation Comments GLUBED (test code = GLUBED) 153 mg/dL 65-110 H [id number] 14:22:00 Test Item Value Reference Range Interpretation Comments GLUBED (test code = GLUBED) 167 mg/dL 65-110 H [id number] 10:38:00 Test Item Value Reference Range Interpretation Comments GLUBED (test code = GLUBED) 117 mg/dL 65-110 H [id number] 06:21:00 Test Item Value Reference Range Interpretation Comments GLUBED (test code = GLUBED) 91 mg/dL 65-110 N [id number] 20:45:00 Test Item Value Reference Range Interpretation Comments GLUBED (test code = GLUBED) 149 mg/dL 65-110 H BASIC METABOLIC [id number] 16:54:00 Test Item Value Reference Range Interpretation Comments SODIUM (test code = 136 mEq/L 135-145 N NA) POTASSIUM (test code 4.1 mEq/L 3.5-5.0 N = K) CHLORIDE (test code 103 mEq/L 100-115 N = CL) CARBON DIOXIDE (test 27 mEq/L 22-31 N code = CO2) ANION GAP (test code 9.70 10-20 L = GAP) GLUCOSE (test code = 135 mg/dL 65-110 H GLU) BLOOD UREA NITROGEN 7 mg/dL 7-18 N (test code = BUN) GLOMERULAR 125 ml/min >60 N The Glomerular FILTRATION RATE Filtration R ate is a (test code = GFR) calculated parameterbased on serum Creatinine, pat ient age and sex. GFR va luesless than 60 mL/min/ 1.73 square meters a re indicative ofCh ronic Kidney Disease. Values less than 15 mL/min/1.73squa re meters indicate Kidney failure. The calculation for GFR is based on the CK D-EPI (2020) calculat ion. This formulais race indifferent and is the recommended for anup for GFRby the Nat nal Kidney Foundati on for Adults.The GFR will not calculate if th e sex is unknown or if thepatient's ag e is <18 years. CREATININE (test 0.7 mg/dL 0.5-1.0 N code = CREAT) CALCIUM (test code = 8.8 mg/dL 8.4-10.2 N CA) CBC W/AUTO [id number] 16:32:00 Test Item Value Reference Range Interpretation Comments WHITE BLOOD CELL (test code = WBC) 8.7 K/mm3 6.5-12.3 N RED BLOOD CELL (test code = RBC) 3.54 M/mm3 3.51-4.69 N HEMOGLOBIN (test code = HGB) 10.9 g/dL 10.1-13.8 N HEMATOCRIT (test code = HCT) 32.4 % 32.5-41.8 L MEAN CELL VOLUME (test code = MCV) 91.5 fL 84.6-96.6 N MEAN CELL HGB (test code = MCH) 30.8 pg 27.3-33.9 N MEAN CELL HGB CONCETRATION (test 33.6 gm/dL 32.0-34.2 N code = MCHC) RED CELL DISTRIBUTION WIDTH (test 13.1 % 12.2-16.3 N code = RDW) PLATELET COUNT (test code = PLT) 168 K/mm3 134-363 N MEAN PLATELET VOLUME (test code = 10.9 fL 9.2-12.7 N MPV) NEUTROPHIL % (test code = NT%) 79.5 % 57.9-77.3 H LYMPHOCYTE % (test code = LY%) 9.2 % 14.5-29.7 L MONOCYTE % (test code = MO%) 10.4 % 3.6-10.2 H EOSINOPHIL % (test code = EO%) 0.2 % 0.0-3.0 N BASOPHIL % (test code = BA%) 0.2 % 0.1-0.9 N NEUTROPHIL # (test code = NT#) 7.0 K/mm3 LYMPHOCYTE # (test code = LY#) 0.8 K/mm3 MONOCYTE # (test code = MO#) 0.9 K/mm3 EOSINOPHIL # (test code = EO#) 0.02 K/mm3 BASOPHIL # (test code = BA#) 0.0 K/mm3 RBC MORPHOLOGY REQUIRED (test code NORMAL NORMAL = RBCM) PLATELET MORPHOLOGY REQUIRED (test NORMAL NORMAL code = PLTMR) [id number] 15:14:00 Test Item Value Reference Range Interpretation Comments GLUBED (test code = GLUBED) 159 mg/dL 65-110 H [id number] 12:57:00 Test Item Value Reference Range Interpretation Comments GLUBED (test code = GLUBED) 122 mg/dL 65-110 H [id number] 10:36:00 Test Item Value Reference Range Interpretation Comments GLUBED (test code = GLUBED) 109 mg/dL 65-110 N HGB [id number] 08:56:00 Test Item Value Reference Range Interpretation Comments HEMOGLOBIN (test code = HGB) 10.6 g/dL 10.1-13.8 N HEMATOCRIT (test code = HCT) 32.0 % 32.5-41.8 L [id number] 05:54:00 Test Item Value Reference Range Interpretation Comments GLUBED (test code = GLUBED) 109 mg/dL 65-110 N - CT HEAD/BRAIN W/O [id number] 00:00:00 [facility] [place] [facility] 2000 Sex: F Patient Name: KIRSTIE CORONEL Unit No: [id number] EXAMS: CPT CODE: [id number] CT HE AD/BRAIN W/O CONT 47993 Radiation Dose CTDIVOL = 46.49 (mGy): DLP = 882.46 (mGy- cm) PROCEDURE INFORMATION: Exam: CT Head Without Contrast Exam date and time: 10/25/2022 4:35 PM Age: 22 years old Clinical indication: Injury or trauma; Fall; Blunt trauma (contusions or hematomas); Injury details: PT hitRT side forehead TECHNIQUE: Imaging protocol: Computed tomography of the head without contrast. 3D rendering (Not supervised by radiologist): MIP and/or 3D reconstructed images were created by the technologist. Radiation optimization: All CT scans at this facility use at least one of these dose optimization techniques: automated exposure control; mA and/or kV adjustment per patient size (includes targeted exams where dose is matched to clinical indication); or iterative reconstruction. COMPARISON: No relevant prior studies available. RADIATION DOSE METRICS: CTDI volume (mGy): 46.49 Total DLP (mGy-cm): 882.46 FINDINGS: Brain: No acute parenchymal hemorrhage or large subacute infarction. The ferguson-white interface and deep ferguson nuclei are intact. No acute subdural or subarachnoid hemorrhage. No mass effect or midline shift. Cerebral ventricles: No acute hydrocephalus. Paranasal sinuses: Visualized sinuses are unremarkable. No fluid levels. Mastoid air cells: No mastoid effusion. Orbital cavities: No acute abnormalities. Bones/joints: No acute fracture or destructive osseous lesion. Soft tissues: No soft tissue swelling or hematoma. IMPRESSION: No acute intracranial abnormality. [facility] NAME: KIRSTIE CORONEL Radiology Department PHYS: Rani Wolf MD [address] : 2000 AGE: 22 SEX: F [place], [place] [address] LOC: F.4658 A PHONE #: [phone] EXAM DATE: 10/25/2022 STATUS: ADM IN FAX #: [phone] RAD NO: Page 1 Signed Report 1 Patient Name: KIRSTIE CORONEL Unit No: [id number] EXAMS: CPT CODE: [id number] CT HEAD/BRAIN W/O CONT 69716 (Continued) at 1755 Reported and signed by: Jorge Glass MD CC: Beth Gilliam MD; Rani Hayes MD Technologist: Irene Chatman, RT, CT CTDI: 46.49 DLP: 882.46 Trnscrbd D/ (175) GCD.[facility] NAME: KIRSTIE CORONEL JERMAN Radiology Department PHYS: Rani Wolf MD [address] : 2000 AGE: 22 SEX: F [place], [place] [address] LOC: F.4658 A PHONE #: [phone] EXAM DATE: 10/25/2022 STATUS: ADM IN FAX #: [phone] RAD NO: Page 2 Signed Report 1 Patient Name: KIRSTIE CORONEL Unit No: [id number] EXAMS: CPT CODE: [id number] CT HEAD/BRAIN W/O CONT 62858 (Continued) Orig Print D/T: S: 10/25/2022 (1755) [facility] BERNAKIRSTIE MOTLEYA JERMAN Radiology Department PHYS: Rani Wolf MD [address] : 2000 AGE: 22 SEX: F [place], [place] [address] LOC: Morris Seth PHONE #: [phone] EXAM DATE: 10/25/2022 STATUS: ADM IN FAX #: [phone] RAD NO: Page 3 Signed Report [id number] 17:07:00 Test Item Value Reference Range Interpretation Comments GLUBED (test code = GLUBED) 65 mg/dL 65-110 N AB HEPATITIS C [id number] 15:39:00 Test Item Value Reference Range Interpretation Comments AB HEPATITIS C (test code = NONREACTIVE NONREACTIVE HCVAB) SIGNAL TO CUTOFF (test code = 0.14 <0.80 N CUTOFF) AB [id number] 15:39:00 Test Item Value Reference Range Interpretation Comments AB TREPONEMA (test code = TREPAB) NONREACTIVE NONREACTIVE AB HIV 1 15:39:00 Test Item Value Reference Range Interpretation Comments AB HIV 1 2 (test NONREACTIVE NONREACTIVE [facility] code = COJ80OW) 4th Gen HIV Ag/Ab Combo Screen AG HEPATITIS B [id number] 15:39:00 Test Item Value Reference Range Interpretation Comments AG HEPATITIS B SURFACE (test code NONREACTIVE NONREACTIVE = HBSAG) COMPREHENSIVE METABOLIC [id number] 15:01:00 Test Item Value Reference Range Interpretation Comments SODIUM (test code = 135 mEq/L 135-145 N NA) POTASSIUM (test code 5.1 mEq/L 3.5-5.0 H = K) CHLORIDE (test code 103 mEq/L 100-115 N = CL) CARBON DIOXIDE (test 23 mEq/L 22-31 N code = CO2) ANION GAP (test code 13.90 10-20 N = GAP) GLUCOSE (test code = 69 mg/dL 65-110 N GLU) BLOOD UREA NITROGEN 8 mg/dL 7-18 N (test code = BUN) GLOMERULAR 153 ml/min >60 N The Glomerular FILTRATION RATE Filtration R ate is a (test code = GFR) calculated parameterbased on serum Creatinin e, patient age and sex. GFR valuesless than 60 mL/min/1.73 squ are meters are ellen cative ofChronic Kidne y Disease. Values less than 15 mL/min/1.73squa re meters indicate Kidney failure. The calculation for GFR is based on the CK D-EPI (2020) calculat ion. This formulais race indifferent and is the recommended for anup for GFRby the [facility] Kidney Foundati on for Adults.The GFR will not calculate i f the sex is unknown or if thepatient's ag e is <18 years. CREATININE (test 0.3 mg/dL 0.5-1.0 L code = CREAT) TOTAL PROTEIN (test 6.8 gm/dL 6.3-8.2 N code = PROT) ALBUMIN (test code = 2.7 gm/dL 3.4-4.8 L ALB) CALCIUM (test code = 8.8 mg/dL 8.4-10.2 N CA) BILIRUBIN TOTAL 0.4 mg/dL 0.2-1.0 N (test code = BILT) SGOT/AST (test code 54 units/L 15-37 H = AST) SGPT/ALT (test code 25 units/L 12-78 N = ALT) ALKALINE PHOSPHATASE 135 units/L 46-116 H TOTAL (test code = ALKP) CBC W/AUTO [id number] 14:34:00 Test Item Value Reference Range Interpretation Comments WHITE BLOOD CELL (test code = WBC) 10.5 K/mm3 6.5-12.3 N RED BLOOD CELL (test code = RBC) 4.15 M/mm3 3.51-4.69 N HEMOGLOBIN (test code = HGB) 12.7 g/dL 10.1-13.8 N HEMATOCRIT (test code = HCT) 37.5 % 32.5-41.8 N MEAN CELL VOLUME (test code = MCV) 90.4 fL 84.6-96.6 N MEAN CELL HGB (test code = MCH) 30.6 pg 27.3-33.9 N MEAN CELL HGB CONCETRATION (test 33.9 gm/dL 32.0-34.2 N code = MCHC) RED CELL DISTRIBUTION WIDTH (test 12.9 % 12.2-16.3 N code = RDW) PLATELET COUNT (test code = PLT) 233 K/mm3 134-363 N MEAN PLATELET VOLUME (test code = 11.4 fL 9.2-12.7 N MPV) NEUTROPHIL % (test code = NT%) 69.2 % 57.9-77.3 N LYMPHOCYTE % (test code = LY%) 21.4 % 14.5-29.7 N MONOCYTE % (test code = MO%) 7.9 % 3.6-10.2 N EOSINOPHIL % (test code = EO%) 0.4 % 0.0-3.0 N BASOPHIL % (test code = BA%) 0.4 % 0.1-0.9 N NEUTROPHIL # (test code = NT#) 7.3 K/mm3 LYMPHOCYTE # (test code = LY#) 2.2 K/mm3 MONOCYTE # (test code = MO#) 0.8 K/mm3 EOSINOPHIL # (test code = EO#) 0.04 K/mm3 BASOPHIL # (test code = BA#) 0.0 K/mm3 RBC MORPHOLOGY REQUIRED (test code NORMAL NORMAL = RBCM) PLATELET MORPHOLOGY REQUIRED (test NORMAL NORMAL code = PLTMR) COVID-19 (ID NOW RAPID TESTING)2021-06-27 22:33:37 Test Item Value Reference Range Interpretation Comments SARS-CoV-2 Rapid ID NOW Positive Not Detected A (test code = 83884-1) DICK (test code = DICK) ID NOW COVID-19 Assay is an isothermal nucleic acid amplification test intended for the qualitative detection of nucleic acid from SARS-CoV-2 viral RNA in nasopharyngeal (KNOWLEDGE MANAGEMENT CONSULTANT) specimens. It is used under Emergency Use Authorization (EUA) by FDA. The limit of detection (LOD) of the assay is 125 Genome Equivalents/mL. A positive result is indicative of the presence of SARS-CoV-2 RNA. ?Clinical correlation with patient history and other diagnostic information is necessary to determine patient infection status. A negative (Not Detected) result does not preclude SARS-CoV-2 infection. In patients with clinical symptoms and other tests that are consistent with SARS-CoV-2 infection, negative results should be treated as presumptive negative and a new specimen should be tested with alternative PCR molecular test. Invalid: Please collect a new specimen for repeat patient testing if clinically indicated. Lab Interpretation Abnormal (test code = 62033-6) [facility]
[2022-11-12] MEDS ORDERED: NA CHLORIDE 0.9% 1,000 ML ONE (03:44)
[2022-11-12] MEDS ORDERED: MORPHINE 4 MG/ML SYR ONE (03:44)
[2022-11-12] MEDS ORDERED: ONDANSETRON 4 MG/2 ML VIAL ONE ×2 (03:44→10:53)
--- NOTE | 2022-11-12 04:29 | ER ---
Nurse's Notes [facility] Name: Maci Arellano Age: 22 yrs Sex: Female : 2000 Arrival Date: 11/12/2022 Time: 02:52 Bed 16 Private MD: Diagnosis: Abdominal pain, unspecified;Acute cholecystitis;Other cholelithiasis with obstruction;Elevated white blood cell count Presentation: 11/12 03:24 Chief complaint: Patient states: "Upper abdominal pain that radiates to back.". vc1 Coronavirus screen: Vaccine status: Patient reports being unvaccinated. At this time, the client does not indicate any symptoms associated with coronavirus-19. Ebola Screen: No symptoms or risks identified at this time. Risk Assessment: Do you want to hurt yourself or someone else? Patient reports no desire to harm self or others. Onset of symptoms was November 10, 2022. 03:24 Method Of Arrival: Wheelchair vc1 03:24 Acuity: IRVIN 3 vc1 03:31 Initial Sepsis Screen: Does the patient meet any 2 criteria? RR > 20 per min. No. vc1 Patient's initial sepsis screen is negative. Does the patient have a suspected source of infection? No. Patient's initial sepsis screen is negative. Triage Assessment: 03:26 General: Appears uncomfortable, Behavior is crying, restless. Pain: Complains of pain vc1 in right upper quadrant and left upper quadrant Pain radiates to back Pain currently is 10 out of 10 on a pain scale. Quality of pain is described as sharp. EENT: No deficits noted. Neuro: Level of Consciousness is awake, alert, obeys commands, Oriented to person, place, time, situation, Appropriate for age. Cardiovascular: No deficits noted. Respiratory: Airway is patent Respiratory effort is even, unlabored, Respiratory pattern is regular, symmetrical. GI: Reports upper abdominal pain, epigastric pain. : No deficits noted. No signs and/or symptoms were reported regarding the genitourinary system. Derm: No deficits noted. No signs and/or symptoms reported regarding the dermatologic system. Musculoskeletal: No deficits noted. No signs and/or symptoms reported regarding the musculoskeletal system. 03:30 Respiratory: Respiratory effort is even, Respiratory pattern is tachypnea. 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 - Social history:: Smoking status: Patient denies any tobacco usage or history of. - Family history:: not pertinent. Screenin:23 [facility] ED Fall Risk Assessment (Adult) History of falling in the last 3 months, ha1 including since admission No falls in past 3 months (0 pts) Confusion or Disorientation No (0 pts) Intoxicated or Sedated No (0 pts) Impaired Gait No (0 pts) Mobility Assist Device Used No (0 pt) Altered Elimination No (0 pt) Score/Fall Risk Level 0 - 2 = Low Risk Oriented to surroundings, Maintained a safe environment, Educated pt \\T\\ family on fall prevention, incl call for assistance when getting out of bed. Abuse screen: Denies threats or abuse. Denies injuries from another. Nutritional screening: No deficits noted. Tuberculosis screening: No symptoms or risk factors identified. Assessment: 03:23 General: Appears uncomfortable, Behavior is anxious. Pain: Complains of pain in abdomen ha1 Pain does not radiate. Pain currently is 10 out of 10 on a pain scale. Quality of pain is described as crampy, throbbing. Neuro: Level of Consciousness is awake, alert, obeys commands, Oriented to person, place, time, situation. Cardiovascular: Patient's skin is warm and dry. Respiratory: Airway is patent Respiratory effort is even, unlabored, Respiratory pattern is regular, symmetrical. GI: Abdomen is non-distended, obese, Bowel sounds present X 4 quads. Abd is soft X 4 quads Reports lower abdominal pain, vomiting, had three weeks ago. : No signs and/or symptoms were reported regarding the genitourinary system. EENT: No deficits noted. No signs and/or symptoms were reported regarding the EENT system. Derm: Skin is pink, warm \\T\\ dry. Musculoskeletal: Circulation, motion, and sensation intact. Range of motion: intact in all extremities. 04:20 Reassessment: Patient and/or family updated on plan of care and expected duration. Pain ha1 level reassessed. Patient is alert, oriented x 3, equal unlabored respirations, skin warm/dry/pink. Patient states feeling better. Patient states symptoms have improved. 05:20 Reassessment: Patient and/or family updated on plan of care and expected duration. Pain ha1 level reassessed. Patient is alert, oriented x 3, equal unlabored respirations, skin warm/dry/pink. Patient states feeling better. Patient states symptoms have improved. 07:20 Reassessment: Patient appears in no apparent distress at this time. No changes from kc6 previously documented assessment. Patient and/or family updated on plan of care and expected duration. Pain level reassessed. Patient is alert, oriented x 3, equal unlabored respirations, skin warm/dry/pink. Patient states feeling better. Patient states symptoms have improved. 08:20 Reassessment: Patient appears in no apparent distress at this time. No changes from [facility] previously documented assessment. Patient and/or family updated on plan of care and expected duration. Pain level reassessed. Patient is alert, oriented x 3, equal unlabored respirations, skin warm/dry/pink. 09:02 Reassessment: client left to preop with SILVA Grady. [facility] Vital Signs: 03:24 Weight 82.55 kg; Height 4 ft. 9 in. (144.78 cm); Pain 10/10; vc1 03:28 BP 127 / 100; Pulse 75; Resp 45; Temp 97.7; Pulse Ox 100% ; vc1 04:30 BP 102 / 50; Pulse 64; Resp 18 S; Pulse Ox 100% on R/A; ha1 05:30 BP 110 / 62; Pulse 60; Resp 15 S; Pulse Ox 99% on R/A; ha1 03:24 Body Mass Index 39.38 (82.55 kg, 144.78 cm) vc1 ED Course: 02:52 Patient arrived in ED. [email or web address] 03:23 Tavon Chapa MD is Attending Physician. [facility] 03:23 Patient has correct armband on for positive identification. Placed in gown. Bed in low ha1 position. Call light in reach. Adult w/ patient. 03:26 Triage completed. vc1 03:28 Arm band placed on right wrist. vc1 03:38 Aidee Gaemz RN is Primary Nurse. vc1 04:04 Inserted saline lock: 22 gauge in left forearm, using aseptic technique. Blood vc1 collected. 04:15 Abdomen Limited US In Process Unspecified. EDMS 04:27 Nader Carlson MD is Hospitalizing Provider. francisco 07:32 No provider procedures requiring assistance completed. Patient admitted, IV remains in ha1 place. Administered Medications: 04:03 Drug: NS 0.9% 1000 ml Route: IV; Rate: 1 bolus; Site: left forearm; vc1 05:30 Follow up: Response: No adverse reaction; IV Status: Completed infusion; IV Intake: ha1 1000ml 04:03 Drug: Zofran (Ondansetron) 4 mg Route: IVP; Site: left forearm; vc1 04:30 Follow up: Response: No adverse reaction ha1 04:03 Drug: morphine 4 mg Route: IVP; Infused Over: 4 mins; Site: left forearm; vc1 04:30 Follow up: Response: No adverse reaction; Pain is decreased; RASS: Alert and Calm (0) ha1 04:50 Drug: Zosyn (piperacillin-tazobactam) 3.375 grams Route: IVPB; Infused Over: 60 mins; ha1 Site: left antecubital; 05:30 Follow up: Response: No adverse reaction; IV Status: Completed infusion; IV Intake: [id number] 05:29 Not Given (Physician Discretion): Pepcid (famotidine) 20 mg IVP once; dilute with 10 mL ha1 0.9% NaCl; give over 2 minutes Medication: 05:30 VIS not applicable for this client. ha1 Intake: 05:30 IV: 1000ml; Total: 1000ml. ha1 05:30 IV: 50ml; Total: 1050ml. ha1 Outcome: 04:28 Decision to Hospitalize by Provider. francisco 05:30 Admitted to ER Hold. Please see [facility] for further documentation. ha1 05:30 Condition: stable 05:30 Discharge instructions given to patient, Instructed on the need for admit, Demonstrated understanding of instructions. 09:02 Patient left the ED. kc6 Signatures: Dispatcher [employer] EDGA Tavon Chapa MD MD cha Jeffries, Jennifer [email or web address] Aidee Gamez RN RN vc1 Melissa Estrella RN RN ha1 Hagen, Lisa, RN RN kc6
--- NOTE | 2022-11-12 04:29 | EDPHYS ---
Physician Documentation [facility] Name: Maci Arellano Age: 22 yrs Sex: Female : 2000 Arrival Date: 11/12/2022 Time: 02:52 Bed 16 Private MD: NETTA Physician Tavon Chapa HPI: 11/12 04:25 This 22 yrs old Female presents to ER via Wheelchair with complaints of Post francisco Problem, Abdominal Pain. 04:25 The patient presents with abdominal pain in the epigastric area, in the upper abdomen, francisco abdominal distention in the epigastric area, in the upper abdomen. Onset: The symptoms/episode began/occurred 2 day(s) ago. The symptoms radiate to Associated signs and symptoms: none. The symptoms are described as crampy. Modifying factors: The symptoms are alleviated by nothing, the symptoms are aggravated by food. Severity of pain: At its worst the pain was mild in the emergency department the pain is unchanged. The patient has experienced similar episodes in the past, multiple times. 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 - Social history:: Smoking status: Patient denies any tobacco usage or history of. - Family history:: not pertinent. ROS: 04:25 Constitutional: Negative for fever, chills, and weight loss, Eyes: Negative for injury, francisco pain, redness, and discharge, ENT: Negative for injury, pain, and discharge, Neck: Negative for injury, pain, and swelling, Cardiovascular: Negative for chest pain, palpitations, and edema, Respiratory: Negative for shortness of breath, cough, wheezing, and pleuritic chest pain, Back: Negative for injury and pain, : Negative for injury, bleeding, discharge, and swelling, MS/Extremity: Negative for injury and deformity, Skin: Negative for injury, rash, and discoloration, Neuro: Negative for headache, weakness, numbness, tingling, and seizure, Psych: Negative for depression, anxiety, suicide ideation, homicidal ideation, and hallucinations, Allergy/Immunology: Negative for hives, rash, and allergies, Endocrine: Negative for neck swelling, polydipsia, polyuria, polyphagia, and marked weight changes, Hematologic/Lymphatic: Negative for swollen nodes, abnormal bleeding, and unusual bruising. 04:25 Abdomen/GI: Positive for abdominal pain, of the epigastric area, right upper quadrant and left upper quadrant. Exam: 04:25 Constitutional: This is a well developed, well nourished patient who is awake, alert, francisco and in no acute distress. Head/Face: Normocephalic, atraumatic. Eyes: Pupils equal round and reactive to light, extra-ocular motions intact. Lids and lashes normal. Conjunctiva and sclera are non-icteric and not injected. Cornea within normal limits. Periorbital areas with no swelling, redness, or edema. ENT: Nares patent. No nasal discharge, no septal abnormalities noted. Tympanic membranes are normal and external auditory canals are clear. Oropharynx with no redness, swelling, or masses, exudates, or evidence of obstruction, uvula midline. Mucous membranes moist. Neck: Trachea midline, no thyromegaly or masses palpated, and no cervical lymphadenopathy. Supple, full range of motion without nuchal rigidity, or vertebral point tenderness. No Meningismus. Chest/axilla: Normal chest wall appearance and motion. Nontender with no deformity. No lesions are appreciated. Cardiovascular: Regular rate and rhythm with a normal S1 and S2. No gallops, murmurs, or rubs. Normal PMI, no JVD. No pulse deficits. Respiratory: Lungs have equal breath sounds bilaterally, clear to auscultation and percussion. No rales, rhonchi or wheezes noted. No increased work of breathing, no retractions or nasal flaring. Back: No spinal tenderness. No costovertebral tenderness. Full range of motion. Skin: Warm, dry with normal turgor. Normal color with no rashes, no lesions, and no evidence of cellulitis. MS/ Extremity: Pulses equal, no cyanosis. Neurovascular intact. Full, normal range of motion. Neuro: Awake and alert, GCS 15, oriented to person, place, time, and situation. Cranial nerves II-XII grossly intact. Motor strength 5/5 in all extremities. Sensory grossly intact. Cerebellar exam normal. Normal gait. Psych: Awake, alert, with orientation to person, place and time. Behavior, mood, and affect are within normal limits. 04:25 Abdomen/GI: Inspection: abdomen appears normal, Bowel sounds: normal, Palpation: mild abdominal tenderness, moderate abdominal tenderness, in the epigastric area, right upper quadrant and left upper quadrant, Liver: no appreciated palpable abnormalities, Hernia: not appreciated. 04:25 Abdomen/GI: Indicators: Valdivia's sign is positive. Vital Signs: 03:24 Weight 82.55 kg; Height 4 ft. 9 in. (144.78 cm); Pain 10/10; vc1 03:28 BP 127 / 100; Pulse 75; Resp 45; Temp 97.7; Pulse Ox 100% ; vc1 04:30 BP 102 / 50; Pulse 64; Resp 18 S; Pulse Ox 100% on R/A; ha1 05:30 BP 110 / 62; Pulse 60; Resp 15 S; Pulse Ox 99% on R/A; ha1 03:24 Body Mass Index 39.38 (82.55 kg, 144.78 cm) vc1 MDM: 03:23 Patient medically screened. francisco 04:29 Differential diagnosis: cholecystitis, Cholelithiasis, non-specific abd pain, Peptic francisco Ulcer Disease, urinary tract infection. Data reviewed: vital signs, nurses notes, lab test result(s), radiologic studies, plain films. Data interpreted: playground monitor: not applicable for this patient encounter. rate is 75 beats/min, Pulse oximetry: on room air is 100 %. Counseling: I had a detailed discussion with the patient and/or guardian regarding: the historical points, exam findings, and any diagnostic results supporting the discharge/admit diagnosis, lab results, radiology results, the need for further work-up and treatment in the hospital. 11/12 03:24 Order name: CBC with Diff; Complete Time: 05:17 francisco 11/12 03:24 Order name: CMP; Complete Time: 05:40 francisco 11/12 03:24 Order name: Lipase; Complete Time: 05:40 francisco 11/12 03:24 Order name: Urine Microscopic Only francisco 11/12 05:10 Order name: SARS RAPID mw2 11/12 06:27 Order name: SARS-COV-2 Antigen Rapid EDMS 11/12 03:24 Order name: Abdomen Limited US [facility] 11/12 07:39 Order name: Urine Dipstick-Ancillary EDLA 11/12 07:52 Order name: Urine --Ancillary (enter results) bd 11/12 09:02 Order name: Urine --Ancillary EDLA 11/12 03:24 Order name: IV Saline Lock; Complete Time: 04:03 francisco 11/12 03:24 Order name: Labs collected and sent; Complete Time: 04:03 francisco 11/12 03:24 Order name: Urine Dipstick-Ancillary (obtain specimen); Complete Time: 07:38 francisco Administered Medications: 04:03 Drug: NS 0.9% 1000 ml Route: IV; Rate: 1 bolus; Site: left forearm; vc1 05:30 Follow up: Response: No adverse reaction; IV Status: Completed infusion; IV Intake: ha1 1000ml 04:03 Drug: Zofran (Ondansetron) 4 mg Route: IVP; Site: left forearm; vc1 04:30 Follow up: Response: No adverse reaction ha1 04:03 Drug: morphine 4 mg Route: IVP; Infused Over: 4 mins; Site: left forearm; vc1 04:30 Follow up: Response: No adverse reaction; Pain is decreased; RASS: Alert and Calm (0) ha1 04:50 Drug: Zosyn (piperacillin-tazobactam) 3.375 grams Route: IVPB; Infused Over: 60 mins; ha1 Site: left antecubital; 05:30 Follow up: Response: No adverse reaction; IV Status: Completed infusion; IV Intake: [id number] 05:29 Not Given (Physician Discretion): Pepcid (famotidine) 20 mg IVP once; dilute with 10 mL ha1 0.9% NaCl; give over 2 minutes Disposition Summary: 11/12/22 04:28 Hospitalization Ordered Hospitalization Status: Observation francisco Provider: Nader Carlson cha Condition: Fair francisco Problem: new francisco Symptoms: have improved francisco Bed/Room Type: Standard francisco Location: [facility] ER HOLD(11/12/22 04:58) mw Room Assignment: ERHOLD-(11/12/22 04:58) mw Diagnosis - Abdominal pain, unspecified francisco - Acute cholecystitis francisco - Other cholelithiasis with obstruction francisco - Elevated white blood cell count francisco Forms: - Medication Reconciliation Form francisco - SBAR form francisco Signatures: Dispatcher [employer] Ryanne Morrissey RN RN mw Anderson, Corey, MD MD cha Calcote, Vanessa, RN RN vc1 Melissa Estrella RN RN ha1 Corrections: (The following items were deleted from the chart) 58 04:28 Telemetry/MedSurg (observation) [facility] :58 04:28 [facility]
[2022-11-12 04:44] LABS: Absolute Lymphocytes (CBC) 1.9 K/uL (0.7-4.9); Hematocrit 34.6 % (36.0-45.0); Lymphocytes % 12.7 % (15.3-44.8); MCV 88.7 fL (80-100); MPV 8.9 fL (7.6-11.3)
[2022-11-12] MEDS ORDERED: NA CHLORIDE 0.9% 100 ML IV ONE ×2 (04:57→08:02)
[2022-11-12] MEDS ORDERED: PIPERACIL/TAZO 3.375 GM VIAL IV ONE ×2 (04:58→08:02)
[2022-11-12 05:21] LABS: Albumin 3.3 g/dL (3.4-5.0); Bilirubin Total 0.4 mg/dL (0.2-1.0); Protein, Total 7.8 g/dL (6.4-8.2)
[2022-11-12] MEDS ORDERED: ACETAMINOPHEN 500 MG TAB PO PRN (06:26)
[2022-11-12] MEDS ORDERED: D5 0.45 NS 1,000 ML IV SCH (06:26)
[2022-11-12] MEDS ORDERED: ONDANSETRON 4 MG/2 ML VIAL IV PRN (06:26)
[2022-11-12] MEDS ORDERED: MORPHINE 4 MG/ML SYR IV PRN (06:26)
[2022-11-12 06:27] LABS: SARS-CoV-2 Antigen Rapid Res Negative (Negative)
[2022-11-12 07:39] LABS: Urine Blood Negative (Negative); Urine Glucose Negative (Negative); Urine Protein Negative (Negative); Urine Specific Gravity 1.015 (1.005-1.030); Urine pH 7.5 (5.0-7.0)
[2022-11-12 07:51] VITALS: BMI 34.4
[2022-11-12] MEDS ORDERED: D5 0.45 NS 1,000 ML IV ONE (08:02)
[2022-11-12] MEDS ORDERED: PIPER TAZO 3.375 GM in NA CHLORIDE 0.9% 100 ML IV SCH (09:00)
[2022-11-12] MEDS ORDERED: FAMOTIDINE 20 MG/2 ML VIAL IV SCH (09:00)
[2022-11-12 09:02] LABS: Urine Specific Gravity/Preg 1.015 (1.005-1.030)
[2022-11-12] MEDS ORDERED: ROCURONIUM 50 MG/5 ML VIAL IV ONE (09:06)
[2022-11-12] MEDS ORDERED: LIDOCAINE 2% MPF 5 ML VIAL ONE (09:06)
[2022-11-12] MEDS ORDERED: FENTANYL CITR 100 MCG/2 ML ONE (09:06)
[2022-11-12] MEDS ORDERED: MIDAZOLAM HCL 2 MG/2 ML INJ ONE (09:06)
[2022-11-12] MEDS ORDERED: propofoL 200 MG/20 ML VIAL IV ONE (09:06)
[2022-11-12] MEDS ORDERED: Ringers Lactate 1,000 ML IV ONE (09:08)
--- NOTE | 2022-11-12 09:36 | P.HP ---
Date of Service: 11/12/22 Chief complaint: Abdominal pain History of present Illness: 22-year-old female with biliary colic for 2 days presents to the emergency room. She has been admitted in the recent past into the ER. No sore throat, runny nose, cough, headaches, dizziness, chest pain, fever or chills. Pain is postprandial in nature. Review of systems: Otherwise unremarkable Past medical history: Diabetes type 2 Past surgical history: Allergies: None Social history: Does not smoke or drink Family history: Noncontributory Vital signs: Stable, afebrile Physical exam: Awake alert oriented x3 Head and neck: No masses, no icterus Chest: Clear Heart: S1-S2 Abdomen: Soft, nondistended, positive bowel sounds with minimal tenderness in the right upper quadrant Extremity: Neurovascular intact, nontender Neuro: Nonfocal Diagnostic data: Ultrasound shows cholelithiasis, White count is 14.9 and LFTs are within normal limits Assessment: Acute and chronic cholecystitis and cholelithiasis Plan/recommendation: Admit, n.p.o., IV fluids, IV antibiotics and to the OR for laparoscopic cholecystectomy possible open. Patient understands risk benefits alternatives and agrees to procedure. CC:
[2022-11-12] MEDS ORDERED: dexAMETHasone 10 MG/ML VIAL ONE (10:19)
[2022-11-12] MEDS ORDERED: KETOROLAC 30 MG/ML INJ ONE (10:19)
[2022-11-12] MEDS ORDERED: GLYCOPYRROLATE 0.2 MG/ML SYR ONE (10:53)
[2022-11-12] MEDS ORDERED: NEOSTIGMINE 1 MG/ML -5 ML ONE (10:55)
[2022-11-12] MEDS ORDERED: HYDROCODONE/APAP 7.5/325 MG TAB PO PRN (11:00)
[2022-11-12] MEDS ORDERED: Mastisol Adhesive Liq ONE (11:01)
--- NOTE | 2022-11-12 11:04 | P.OP ---
Date of Service: 11/12/22 Preop diagnosis: Acute cholecystitis and cholelithiasis Postop diagnosis: Same Procedure performed: Laparoscopic cholecystectomy Surgeon: Nader Carlson MD Choir Teacher: Mary BALDWIN Estimated blood loss: Minimal Specimen: Gallbladder Findings: As above Anesthesia: General Complications: None Drains: None Fluids and blood products: Nonapplicable Disposition: Recovery room Operative note: Patient brought to the OR and placed in the supine position. General anesthesia begun. Patient prepped and draped in usual sterile fashion. Marcaine 0.5% infiltrated locally. 15 blade used to make a 1 cm supraumbilical midline incision. Subcutaneous tissue divided. Fascia identified and divided. #1 Vicryl stay suture placed. Peritoneal cavity entered with sharp and blunt dissection. 12 mm trocar placed into the peritoneal cavity under direct vision. Pneumoperitoneum established. Then 3 5 mm trochars placed. 1 trocar placed in the epigastric region just to the right of midline. And 2 trochars placed in the right subcostal region. Laparoscopy revealed a distended gallbladder with acute inflammation. Gallbladder aspirated of bile. Fundus retracted superiorly. Infundibulum identified and retracted inferolaterally. Cystic duct and cystic artery clearly identified with blunt dissection. Clips placed and b oth structures divided. Cautery used to remove the gallbladder from the liver bed. Gallbladder retrieved through the umbilicus via Endo Catch bag. Right upper quadrant irrigated. Effluent clear and no evidence of bleeding or bile leakage appreciated. Subsequently all trochars removed under direct vision. Stay sutures tied to each other to reapproximate the fascial defect. Subcutaneous was irrigated. Bleeding controlled with cautery. And 3-0 chromic used to close the skin and subcutaneous tissue. Sterile dressing applied. Patient awakened and taken to recovery room in good general condition. CC:
[2022-11-12] MEDS: HYDROMORPHONE HCL 1 MG/ML INJ ONE ×2 (11:25→11:42)
[2022-11-12 11:55] VITALS: O2SAT 94
[2022-11-12] MEDS ORDERED: HYDROCODONE/APAP 7.5/325 MG TAB ONE (12:41)
[2022-11-12 13:10] VITALS: BP 142/80; TEMP 97.3
--- NOTE | 2022-11-12 15:40 | RAD REPORT ---
EXAM DESCRIPTION: US - Abdomen Exam Limited - 11/12/2022 4:14 am CLINICAL HISTORY: ABD PAIN COMPARISON: None. TECHNIQUE: US ABDOMEN LIMITED 11/12/2022 3:24 AM ZOO KEEPER FINDINGS: Liver is normal in echotexture. Gallbladder contains multiple gallstones without wall thic kening or pericholecystic fluid. IMPRESSION: Cholelithiasis. Electronically signed by: Bon Valencia MD 11/12/2022 4:30 AM ZOO KEEPER Due to temporary technical issues with the PACS/Fluency reporting system, reports are being signed by the in house radiologists without review as a courtesy to insure prompt reporting. The interpreting radiologist is fully responsible for the content of the report.
== END 2022-11-12 13:13 | disposition home or self-care (01) ==
LOC: ER 02:48 → ERHOLD 04:33
PROVIDERS: ADMIT Surgery; ATTEND Surgery
PROC: 0FT44ZZ Resection of Gallbladder, Percutaneous Endoscopic Approach (ICD-10-PCS; principal; 2022-11-12 09:45)
DX: K80.12 Calculus of gallbladder with acute and chronic cholecystitis without obstruction (principal); Z20.822 Contact with and (suspected) exposure to COVID-19; E11.9 Type 2 diabetes mellitus without complications
CPT/HCPCS: 85025; 36415; 81025; 88304; 81003; 83690; 80053; 76705; 87811; 47562; J2704; J2543 ×3; J2001; J2250; J3010; J1100; J1170; J2710; J7799; J7120; J7030; J2405 ×2